=== PATIENT | female | born 1990 ===

== ENCOUNTER 2019-10-01 20:39 | Emergency (ER) | payer SELFPAY ==
--- NOTE | 2019-10-01 20:44 | UC ---
Bite Injury/Animal HPI - HPI Summary HPI Summary: 28 yo female presents with cat bite. She tells me that about 1 hour [employer] she was working at [employer] and was holding a cat for an IV placement - cat bite her left forearm. Pt sustained 2 puncture wounds. She washed the area immediately following. Cat is unvaccinated. Pt has had the rabies series in the past and titers were drawn for [place] last year and she was immune - per pt. Unsure date of last tetanus. - History of Current Complaint Stated Complaint: CAT BITE Time Seen by Provider: 10/01/19 20:44 Hx Obtained From: Patient Severity Currently: Mild Severity Initially: Mild Pain Intensity: 1 Pain Scale Used: 0-10 Numeric - Allergies/Home Medications Allergies/Adverse Reactions: Allergies Allergy/AdvReac Type Severity Reaction Status Date / Time cefprozil [From Cefzil] Allergy Severe Hives Verified 10/01/19 20:58 PMH/Surg Hx/FS Hx/Imm Hx - Additional Past Medical History Additional PMH: None - Surgical History Surgical History: None - Family History Known Family History: Positive: None - Social History Occupation: Employed Full-time Lives: With Family Alcohol Use: Occasionally Substance Use Type: None Smoking Status (MU): Never Smoked Tobacco Review of Systems All Other Systems Reviewed And Are Negative: No Constitutional: Positive: Negative Skin: Positive: Other - Cat bite Respiratory: Positive: Negative Cardiovascular: Positive: Negative Neurological: Positive: Negative Psychological: Positive: Negative Physical Exam - Summary Physical Exam Summary: GENERAL: NAD. WDWN. No pain distress. SKIN: LEFT FOREARM: Two small puncture wounds. No drainage, bleeding, edema, or surround erythema. Clean appearing. CHEST: No accessory muscle use. Breathing comfortably and in no distress. CV: Pulses intact. Cap refill <2seconds MSK: FROM to left wrist and elbow NEURO: Alert. PSYCH: Age appropriate behavior. Triage Information Reviewed: Yes Vital Signs: Vital Signs: Temp Pulse Resp BP Pulse Ox 98.9 F 86 16 148/91 100 10/01/19 20:50 10/01/19 20:50 10/01/19 20:50 10/01/19 20:50 10/01/19 20:50 Vital Signs Reviewed: Yes Bite Injury Course/Dx - Course Course Of Treatment: Noted allergy to cefprozil, but pt has had Augmentin in the past without issue. tdap updated today. Rx for Augmentin Health department contacted in regards to possible rabies booster and they recommend no booster as pt's titers reflect immunity. [facility] will contact Jovanny in the morning for more information on the cat. - Differential Dx/Diagnosis Provider Diagnosis: Cat bite Discharge ED - Sign-Out/Discharge Documenting (check all that apply): Patient Departure All imaging exams completed and their final reports reviewed: No Studies - Discharge Plan Condition: Stable Disposition: HOME Prescriptions: Amoxicillin/Clavulanate TAB* [Augmentin TAB 875*] 875 mg PO BID #14 tab Patient Education Materials: Animal Bite (ED) Referrals: No Primary Care Phys,NOPCP [Primary Care Provider] - Additional Instructions: The health department will contact Jovnany in the morning regarding the cat that bit you this evening - Billing Disposition and Condition Condition: STABLE Disposition: Home
[2019-10-01] MEDS ORDERED: Tetan/Diph/Pertus SYR(Tdap)* 0.5 ML SYR(BOOSTRIX) use SYR contains LATEX IM ONE (21:02)
[2019-10-01] MEDS ORDERED: Amoxicillin/Clavulanate TAB* 875 MG PO ONE (21:02)
[2019-10-01] MEDS ORDERED: Albuterol 2.5 MG/3 ML NEB.SOL* (0.083%) INH ONE (21:11)
[2019-10-01] MEDS ORDERED: Ipratropium 0.5MG/2.5ML NEB* 0.5 MG/2.5 ML NEB.SOLN INH ONE (21:11)
== END 2019-10-01 21:26 | disposition home or self-care (01) ==
LOC: UCEAST 20:39
DX: S51.852A Open bite of left forearm, initial encounter (principal); W55.01XA Bitten by cat, initial encounter; Y92.9 Unspecified place or not applicable; Z88.1 Allergy status to other antibiotic agents
CPT/HCPCS: 90471; 90715; 99202; A9270-GY; G0463